=== PATIENT | female | born 1990 | race Caucasian/White ===

== ENCOUNTER 2023-01-01 17:40 | Emergency (ER) | payer BC, OTHER ==
[~2023-01-01] VITALS: Ht 170.2 cm; Wt 103.0 kg
[2023-01-01 17:55] VITALS: BP_SYST 122
--- NOTE | 2023-01-01 18:04 | NUR ---
Patient to ER bed 4 to gown for evaluation. Side rails up. Report given to HALLEY GRAYSON.
--- NOTE | 2023-01-01 18:09 | NUR ---
DR CORMIER IN ROOM FOR EXAM
--- NOTE | 2023-01-01 18:16 | NUR ---
PT COMES HERE BIBA FROM WORK FOR A NEAR SYNCOPAL EPISODE, DID NOT HIT FLOOR, DENIES LOC. PT AAOX4, IN NAD. RESP EVEN AND UNLABOED, ON RA @98%. SKIN W/D/I, BS AT BEDSIDE CURRENTLY 97MG/DL.
[2023-01-01 18:28] VITALS: BP_SYST 122
--- NOTE | 2023-01-01 18:28 | NUR ---
Patient given written and verbal discharge instructions and verbalizes understanding. ER MD discussed with patient the results and treatment provided. Patient in stable condition. ID arm band removed.
== END 2023-01-01 18:28 | disposition home or self-care (01) ==
LOC: SED 17:40
DX: R55 Syncope and collapse (principal); E16.2 Hypoglycemia, unspecified; F41.9 Anxiety disorder, unspecified; R20.2 Paresthesia of skin; Z79.899 Other long term (current) drug therapy
CPT/HCPCS: 93005; 99283